=== PATIENT | male | born 1950 | race Caucasian/White ===

== ENCOUNTER → 2025-06-20 09:35 | Outpatient (REF) | payer MEDICARE, OTHER, SELFPAY | LOC: CLAB 09:35 | PROVIDERS: ATTENDING PHYSICIAN Specialist | DX: C67.9 Malignant neoplasm of bladder, unspecified (principal) | CPT/HCPCS: 88305 ==

== ENCOUNTER 2025-08-25 09:58 | Emergency (ER) | payer MEDICARE, OTHER, SELFPAY ==
[2025-08-25 10:01] VITALS: BP 121/78
[2025-08-25 11:49] LABS: Hematocrit 45.4 % (39.0-52.0); Hemoglobin 14.9 g/dL (13.0-18.0); Mean Corp Hgb Conc. 32.8 g/dL (33.0-37.0); Mean Corpuscular Volume 87.5 fL (80.0-94.0); Platelet Count 172 10^3/uL (130-400); Red Cell Dist. Width 14.1 % (11.5-14.5)
[2025-08-25 12:12] LABS: Blood Urea Nitrogen 21 mg/dl (9-20); Calcium 9.6 mg/dl (8.4-10.2); Carbon Dioxide 31 mmol/L (22-30); Chloride 104 mmol/L (98-107); Glucose 131 mg/dl (70-99); Potassium 4.2 mmol/L (3.5-5.1); Sodium 141 mmol/L (135-145); eGFR > 60.00
--- NOTE | 2025-08-25 12:31 | ED.GENMED ---
History of Present Illness
General
Chief Complaint: DVT/Possible Blood Clot
Time Seen by Provider: 08/25/25 11:07
History of Present Illness
History of Present Illness:
74-year-old male presents to the emergency department for evaluation of right lower extremity DVT that was identified on outpatient ultrasound. Patient had leg swelling and occasional discomfort for the past month but essentially reports no pain at
present. Outpatient ultrasound reveals extensive DVT from the iliac vein to the popliteal vein. He denies any paresthesias or claudication symptoms. No recent immobilization or surgeries, no recent travel. No history of DVT
Past History
Past History
ED Past Medical History: Hypercholesterolemia and Other (Bladder cancer)
ED Past Surgical History: Other (2 hernia operations, 1 previous bladder cancer removal surgery bladder tumor removal 01/02/2022)
Patient has exhibited threatening behavior?: No
Social History
Tobacco: Non-smoker
Alcohol: None
Drug: None
Personal:
Living: with family
Employment: Retired
Review of Systems
Review of Systems
Allergies reviewed?: Yes
All Other Systems: ROS reviewed and negative except as documented in HPI and ROS
Phy Exam
Physical Exam
Physical Exam:
GEN: Well appearing, NAD, WDWN
HEENT: Oral mucosa moist, no scleral icterus
Cardiac: Regular rate
Lung: No respiratory distress, no tachypnea
MSK: No gross deformity or injuries. Diffuse edema to the right lower extremity, strong dorsalis pedis and posterior tibialis pulses, sensation intact diffusely to the lower extremity
Skin: Good color, no pallor or jaundice, no rashes
Neuro: AO x3, moves all extremities freely
Psych: Calm, cooperative
Course
Orders/Labs/Results
Orders:
Orders
08/25/25 11:41
Basic Metabolic Panel Urgent
Complete Blood Count/No Diff Urgent
Abnormal Lab Results
08/25/25
11:41
MCHC 32.8 L g/dL
(33.0-37.0)
Carbon Dioxide 31 H mmol/L
(22-30)
BUN 21 H mg/dl
(9-20)
Glucose 131 H mg/dl
(70-99)
08/25/25 11:41
08/25/25 11:41
Vital Signs
Initial and Last Documented VS:
Initial Vital Signs
Temp Pulse Resp BP Pulse Ox
97.7 F 56 20 121/78 98
08/25/25 10:01 08/25/25 10:01 08/25/25 10:01 08/25/25 10:01 08/25/25 10:01
Last Documented Vital Signs
Temp Pulse Resp BP Pulse Ox
97.7 F 56 20 121/78 98
08/25/25 10:01 08/25/25 10:01 08/25/25 10:01 08/25/25 10:01 08/25/25 12:32
MDM/Problems Addressed
MDM/Problems Addressed:
Patient has no clinical symptoms of arterial vascular compromise/phlegmasia. No indication for further imaging or vascular intervention. Will start DOAC and recommend close PCP f/u
*Pulse Oximetry
SaO2: 98
Oxygen Mode of Delivery: Room air
Patient hypoxic: no
*Critical Care Note
Total Time (30-74mins, 75-104mins- exclusive of procedures): Not Applicable
ED Attending Note
-
Portions of this chart may have been created with voice recognition software.� Occasional wrong word or��sound alike� substitutions may have occurred due to the inherent limitations of voice recognition software.
Discharge Plan
Departure
Patient Disposition: Home (Routine Discharge)
Date of Disposition: 08/25/25
Time of Disposition: 12:31
Patient with high blood pressure during this ER visit?: No
Discharge Problem:
Acute deep vein thrombosis of right iliac vein
Instructions: Deep Vein Thrombosis (Blood Clots in the Legs) (DC)
Prescriptions:
New
Eliquis 5 mg tablet
5 mg PO BID Qty: 74 0RF
Rx Instructions:
10mg PO bid x 7d then 5mg PO bid
No Action
atorvastatin 10 MG tablet
10 mg PO HS
tamsulosin 0.4 MG capsule
0.4 mg PO QPM
fish oil-dha-epa 1 EACH capsule
1 ea PO DAILY
Centrum Silver Men 1 EACH tablet
1 ea PO DAILY
Prostate Health 1 EACH tablet
1 ea PO DAILY
cholecalciferol (vitamin D3) 125 MCG tablet,disintegrating
5,000 unit PO DAILY
coenzyme Q10 [Co Q-10] 200 MG capsule
200 mg PO DAILY
metformin 500 mg Tablet
500 mg PO DAILY
Glucose Md
2 tab PO DAILY
Referrals:
Eliu Bonilla I., DO [Family Provider, Internal Medicine]
Interventions
Interventions:
*Risk Screen - Suicide Last Done: 08/25/25 10:01
*Neglect/Abuse Screening Last Done: 08/25/25 10:01
*Nursing Disposition Last Done: 08/25/25 12:39
ED- Cardiac Assessment Last Done: 08/25/25 11:48
ED- Pulmonary Assessment Last Done: 08/25/25 11:48
ED-Peripheral Vascular Assessment Last Done: 08/25/25 11:48
ED-Skin Assessment Last Done: 08/25/25 11:48
Discharge Date and Time
Discharge Date/Time: 08/25/25 12:39
Print Language: J[place]
== END 2025-08-25 12:39 | disposition home or self-care (01) ==
LOC: EMR 09:58
PROVIDERS: Physician Assistant; EMERGENCY PHYSICIAN Emergency Medicine; FAMILY PHYSICIAN Internal Medicine
DX: I82.421 Acute embolism and thrombosis of right iliac vein (principal); R22.41 Localized swelling, mass and lump, right lower limb; E78.00 Pure hypercholesterolemia, unspecified; Z85.51 Personal history of malignant neoplasm of bladder
CPT/HCPCS: 99284; 80048; 85027; 93971